=== PATIENT | female | born 1960 | race Caucasian/White ===

== ENCOUNTER 2022-01-25 10:49 | Emergency (ER) | payer OTHER ==
[2022-01-25 11:08] VITALS: BP 134/86; PULSE 79; TEMP 97.9; BMI 20.5
== END 2022-01-25 12:01 | disposition home or self-care (01) ==
LOC: FER 10:49
DX: S92.354A Nondisplaced fracture of fifth metatarsal bone, right foot, initial encounter for closed fracture (principal); X50.0XXA Overexertion from strenuous movement or load, initial encounter
CPT/HCPCS: 73630-TC-RT-FY; 99283-25